=== PATIENT | female | born 1960 | race Caucasian/White ===

== ENCOUNTER 2022-10-15 10:17 | Day surgery (SDC) | payer BC, OTHER ==
[2022-10-14 13:55] LABS: Potassium 3.7 mEq/L (3.5-5.1)
--- NOTE | 2022-10-15 08:50 | EKG ---
Test Date: 2022-10-14 Test Time: 13:26:59 Tight Barrel Inspector: TEQUILA MEASUREMENT RESULTS: Intervals: Rate: 58 MT: 150 QRSD: 94 QT: 442 QTc: 433 [place]: P: 14 MT: 150 QRS: 21 T: 67 INTERPRETIVE STATEMENTS: Sinus bradycardia Otherwise normal ECG No previous ECG available for comparison Electronically Signed On 10-15-22 08:47:58 CDT by Alexey Dailey
[2022-10-15] MEDS ORDERED: Ringers Lactate 1,000 ML IV ONE (10:35)
[2022-10-15] MEDS: VANCOMYCIN 1 GM/VIAL ONE ×2 (14:38→15:00)
[2022-10-15] MEDS: BUPIVACAINE 0.25% PF 30 ML VIAL ONE ×2 (14:38→15:18)
[2022-10-15] MEDS ORDERED: MIDAZOLAM HCL 2 MG/2 ML INJ ONE (14:41)
[2022-10-15] MEDS ORDERED: FENTANYL CITR 100 MCG/2 ML ONE (14:41)
[2022-10-15] MEDS ORDERED: propofoL 200 MG/20 ML VIAL IV ONE (14:41)
[2022-10-15] MEDS ORDERED: ONDANSETRON 4 MG/2 ML VIAL ONE (14:42)
[2022-10-15] MEDS ORDERED: LIDOCAINE 1% MPF 5 ML VIAL ONE ×2 (14:42→14:43)
[2022-10-15] MEDS ORDERED: ROCURONIUM 50 MG/5 ML VIAL IV ONE (14:42)
[2022-10-15] MEDS ORDERED: Phenylephrine HCl 10 MG/ML 1 ML VIAL ONE ×2 (15:13→15:14)
--- NOTE | 2022-10-15 15:40 | P.OP ---
Preoperative diagnosis: Ventral Hernia Postoperative diagnosis: Ventral Hernia Primary procedure: Laparoscopic Ventral Hernia Repair with mesh Anesthesia: GETA + Local Estimated blood loss: <5cc Specimen: none Findings: ~ 2.5cm supra-umbilical hernia with incarcerated omentum Complications: None Implants: Bard Ventalite 11.4cm round mesh, sorbafix tacks x 45 Fluids & blood products: Transferred to: Recovery Room Condition: Good
[2022-10-15] MEDS ORDERED: KETOROLAC 30 MG/ML INJ ONE ×2 (15:50→15:52)
[2022-10-15] MEDS: HYDROMORPHONE HCL 1 MG/ML INJ ONE ×2 (15:50→16:08)
[2022-10-15 16:21] VITALS: O2SAT 93
[2022-10-15] MEDS ORDERED: HYDROMORPHONE HCL 1 MG/ML INJ ONE (16:21)
[2022-10-15] MEDS ORDERED: HYDROCODONE/APAP 7.5/325 MG TAB ONE (16:49)
[2022-10-15 17:21] VITALS: BP 123/80; TEMP 97
--- NOTE | 2022-10-15 23:52 | OP ---
Date of Procedure: 10/15/2022 Surgeon: Aleksandar Ardon MD, Preoperative Diagnosis: Ventral hernia. Postoperative Diagnosis: Ventral hernia. Procedure Performed: Laparoscopic ventral hernia repair with mesh. Anesthesia: General endotracheal plus local with 0.25% Marcaine. Estimated Blood Loss: Less than 5 cc. Specimen: None. Findings: 2.5 cm supraumbilical hernia with incarcerated omentum. Complications: None. Implants: Bard Ventralight 11.4 cm round mesh with SorbaFix absorbable fixation tacks, x45 tacks uti lized. Disposition: The patient transferred to recovery room in good condition. Procedure In Detail: After informed consent was obtained, patient was brought to the operating room, prepped and draped in the usual sterile fashion. After adequate anesthesia was achieved, I anesthet ized an area of the left lower quadrant down to subcutaneous tissues. An incision was made. A 5 mm 0-degree optical trocar was introduced in the abdomen without evidence of complication. Insufflation was obtained to 15 mmHg at this time. There was no injury to vital structures upon entry into the a bdomen. Additional trocar site was chosen in the left lower quadrant. Similarly anesthetized, sharp ly incised, and a 12 mm trocar was placed under direct visualization without evidence of complication . At this point, I grasped the omentum, which was found to be a supraumbilical hernia incarcerated a t this point, and using combination of blunt and sharp dissection, I was able to dissect and free up all the omentum from the anterior abdominal wall hernia defect and placed back to the normal anatomic position. There was no hemostatic maneuvers required at this point. At this point, I sized the her russell defect appropriately and found that I wanted to close it with a suture. Initially I closed the h ernia defect using an Endo Stitch with an 0 V-Loc suture in a running fashion with good approximation of tissues imbricating the hernia sac at this point. I then deployed 11.[address] me sh with Echo positioning System in the central portion of the defect after appropriately anesthetizin g the skin, a small stab incision in the supraumbilical position. After the mesh was deployed, I sec ured to the anterior abdominal wall using SorbaFix absorbable fixation tacks in a double crown type o rientation, without evidence of complication. No additional hemostats were required. I then removed the balloon deployment system and sent it off on the back table, and found to be intact on the back table. At this point, I secured the mesh to the anterior abdominal using remaining total 45 tacks to the anterior abdominal wall with good approximation tissues. I then turned my attention to the 12 m m trocar site. Using a Christopher-Joanne suture passer, I closed this defect using 0 Vicryl in an inte rrupted fashion with good approximation of tissues. I then desufflated the abdomen under direct visu alization without evidence of complication. Remaining trocars were removed. All skin incisions were then copiously irrigated and closed with a 4-0 Monocryl in running fashion. Dermabond was placed ov er top. Patient tolerated the procedure well without evidence of complication and transferred to PAC U in good condition. All counts were correct at the end of the case. DORINDA/LUIS Voice ID: [id number] Report ID: [id number]
== END 2022-10-15 17:15 | disposition home or self-care (01) ==
LOC: OR 10:17
PROVIDERS: ATTEND Surgery
PROC: 0WUF4JZ Supplement Abdominal Wall with Synthetic Substitute, Percutaneous Endoscopic Approach (ICD-10-PCS; principal; 2022-10-15 13:15)
DX: K43.9 Ventral hernia without obstruction or gangrene (principal)
CPT/HCPCS: 93005; 80048; 36415; 49591; J2704; J2001 ×2; J2370 ×2; J2250; J3010; J1170 ×2; J2405; J7120; C1781